=== PATIENT | female | born 1955 | race Caucasian/White ===

== ENCOUNTER → 2019-05-10 | Outpatient (CLI) | payer BC ==
--- NOTE | 2019-05-10 09:20 | Diagnostic Imaging Report ---
EXAM: Right upper quadrant abdominal ultrasound INDICATION: Elevated liver enzymes. COMPARISON: None. TECHNIQUE: Transverse and longitudinal images of the right upper quadrant abdomen were obtained FINDINGS: Liver: Size: 13.5 cm in the right midclavicular line, normal Appearance: Normal echogenicity, smooth contour Mass: No focal masses Gallbladder: No gallbladder distension, pericholecystic fluid, wall thickening, stone, or reported sonographic Pena's sign. Gallbladder wall measures 2 mm. Bile Ducts: Intrahepatic Ducts: No dilatation Extrahepatic Ducts: Common bile duct measures 4 mm, no dilatation Pancreas: Visualized portions of the pancreatic head, neck and proximal body are normal. Kidney: The right kidney measures 8.9 cm without evidence of hydronephrosis or stone. Vessels: Aorta: Visualized portions are normal Inferior Vena Cava: Visualized portions are normal Main Portal Vein: 1.0 cm, normal size with hepatopetal flow. Free Fluid: No ascites or pleural effusion IMPRESSION: Unremarkable right upper quadrant ultrasound. Signed by: Enrique Landaverde MD on 05/10/2019 9:16 AM
== END ==
LOC: US 07:44
PROVIDERS: ATTEND Internal Medicine Gastroenterology
DX: R74.8 Abnormal levels of other serum enzymes (principal)
CPT/HCPCS: 76705

== ENCOUNTER → 2019-07-03 | Day surgery (SDC) | payer BC ==
[~2019-07-03] MED LIST: AMLODIPINE BESYL5 MG PO; CYCLOBENZAPRINE10 MG PO; GABAPENTIN100 MG PO; HYDROCHLOROTHIA25 MG PO; LIDOCAINE HCL 2% LOCAL INJ 5 ML SDV VIAL INJ ONE; MIDAZOLAM HCL 2 MG/2 ML VIAL ONE; PROPOFOL IV EMULSION 10 MG/ML 50 ML VIAL ONE
[2019-07-03 08:30] VITALS: BP 115/73
--- OUTSIDE RECORDS SUMMARY | 2019-07-06 13:04 | XMS REPORT ---
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 Allergies, Adverse Reactions, Alerts Allergy Name Allergy Type Status Severity Reaction(s) Onset Date Inactive Date Treating Clinician Comments Penicillins DA Active U 2011-03-21 00:00:00 codeine DA Active U 2011-03-21 00:00:00 Medications This patient has no known medications. Encounters Start Date/Time End Date/Time Encounter Type Admission Type Attending Clinicians Care Facility Care Department Encounter ID 2018 00:00:00 2018 00:00:00 Outpatient [facility] [id number] 2018-03-22 00:00:00 2018-03-22 00:00:00 Outpatient [facility] [id number] 2018-03-07 00:00:00 2018-03-07 00:00:00 Outpatient [facility] [id number] 2018-03-01 09:30:10 2018-03-01 09:30:10 Outpatient [facility] [id number] 2018-03-01 08:41:30 2018-03-01 08:41:30 Outpatient [facility] [id number] 2018-03-01 07:48:38 2018-03-01 07:48:38 Outpatient [facility] [id number] Results Test Description Test Time Test Comments Text Results Atomic Results Result Comments US LIVER 2019-05-10 09:15:00 [place] [id number] Patient Name: KAMARI FISCHER MR #: [id number] : 1955 Age/Sex: 64/F Req #: [id number] Adm Physician: Ordered by: GALLITO RODARTE MD Report #: [id number] Location: Room/Bed: Procedure: [id number] US/US LIVER Exam Date: 05/10/19 Exam Time: 808 REPORT STATUS: Signed EXAM: Right upper quadrant abdominal ultrasound INDICATION: Elev ated liver enzymes. COMPARISON: None. TECHNIQUE: Transverse and longitudinal images of the right upper quadrant abdomen were obtained FINDINGS: Liver: Size: 13.5 cm in the right midclavicular line, normal Appearance: Normal echogenicity, smooth contour Mass: No focal masses Gallbladder: No gallbladder distension, pericholecystic fluid, wall thickening, stone, or reported sonographic Pena's sign. Gallbladder wall measures 2 mm. Bile Ducts: Intrahepatic Ducts: No dilatation Extrahepatic Ducts: Common bile duct measures 4 mm, no dilatation Pancreas: Visualized portions of the pancreatic head, neck and proximal body are normal. Kidney: The right kidney measures 8.9 cm without evidence of hydronephrosis or stone. Vessels: Aorta: Visualized portions are normal Inferior Vena Cava: Visualized portions are normal Main Portal Vein: 1.0 cm, normal size with hepatopetal flow. Free Fluid: No ascites or pleural effusion IMPRESS ION: Unremarkable right upper quadrant ultrasound. Signed by: Cirilo Limon MD on 05/10/2019 9:16 AM Dictated By: CIRILO LIMON MD 5 Transcribed By: HUANG on 05/10/19915 COPY TO: GALLITO RODARTE MD
--- OUTSIDE RECORDS SUMMARY | 2019-07-06 13:04 | XMS REPORT ---
Author Author Admin, [place] Organization [facility] Address [address] [place] [address] [place] [address] Phone Allergies, Adverse Reactions, Alerts Allergy Name Reaction Description Start Date Severity Status Provider PENICILLIN Severe Active [employer] CODEINE Severe Active [employer] Conditions or Problems Problem Name Problem Code Onset Date Status Entry Date Provider Comment Standard Description Annotate Family stress V61.9 Active Lois Oglesby DO Unspecified family circumstance Hyperlipidemia 272.4 Active Lois Oglesby DO Other and unspecified hyperlipidemia Abnormal radiologic findings on diagnostic imaging of right kidney Active Lois Oglesby DO US: elliptical hypoechoic lesion in the superior pole of right kidney Degenerative disc disease, 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 Lois Oglesby DO Degeneration of lumbar or lumbosacral intervertebral disc with facet osteoarthropathy on xray in 09/2018 Osteopenia 733.90 Active Lois Oglesby DO Disorder of bone and cartilage, unspecified per thoracic xray in 09/2018 Scoliosis 737.30 Active Lois Oglesby DO Scoliosis [and kyphoscoliosis], idiopathic mild thoracic spine per xray in 09/2018 Elevated alkaline phosphatase 790.5 Active Lois Oglesby DO Other nonspecific abnormal serum enzyme levels Elevated LFT's 794.8 Active Lois Oglesby DO Nonspecific abnormal results of function study of liver Encounter for immunization V05.9 Active Lois Oglesby DO Need for prophylactic vaccination and inoculation against unspecified single disease Gynecological examination, routine V72.3 Active Lois Mendel DO Special investigations and examinations - Gynecological examination Mammogram not high risk screening V76.12 Active Lois Mendel DO Other screening mammogram Hypertension 401.1 Active Lois Mendel DO Benign essential hypertension Lumbago 724.2 Active Lois Mendel DO Lumbago Overweight Active Lois Mendel DO Overweight Screening for anemia ICD-V78.1 Inactive Lois Mendel DO Screening for diabetes mellitus ICD-V77.1 Inactive Lois Mendel DO Screening for lipid disorder ICD-V77.91 Inactive Lois Mendel DO Screening for metabolic disorder ICD-V77.99 Inactive Lois Mendel DO Screening for thyroid disorder ICD-V77.0 Inactive Lois Mendel DO Screening, STD ICD-V74.5 Inactive Lois Mendel DO Screening for anemia V78.1 Resolved Lois Mendel DO Screening for other and unspecified deficiency anemia Screening for diabetes mellitus V77.1 Resolved Lois Mendel DO Screening for diabetes mellitus Screening for lipid disorder V77.91 Resolved Lois Mendel DO Screening for lipoid disorders Screening for metabolic disorder V77.99 Resolved Lois Mendel DO Screening for other and unspecified endocrine, nutritional, metabolic, and immunity disorders Screening for thyroid disorder V77.0 Resolved Lois Mendel DO Screening for thyroid disorders Screening, STD V74.5 Resolved Lois Mendel DO Screening examination for venereal disease Medication List Medication Instructions Start Date Stop Date Generic Name NDC Status Provider Patient Instruction CYCLOBENZAPR 10MG TAB Take onet tablet By Mouth take at bedtime NEEDED FOR MUSCLE SPASM CYCLOBENZAPRINE HCL 82577111709 Active Lois Turpinhney Active NAPROXEN 500MG TAB TAKE 1 TABLET BY MOUTH TWICE DAILY NEEDED FOR PAIN AND INFLAMMATION NAPROXEN 85258920016 Active Lois Mendel Active AMLODIPINE BESYLATE 5 MG ORAL TABLET 1 tab by mouth daily AMLODIPINE BESYLATE 39136411440 Active Lois Turpinhney Active HYDROCHLOROTHIAZIDE 12.5 MG ORAL CAPSULE 1 by mouth every day HYDROCHLOROTHIAZIDE 41242011245 Active Lois Turpinhney Active TRAMADOL HCL 50 MG ORAL TABLET 1-2 tablet By Mouth Twice a Day as needed for breakthrough pain over Naproxen treatment TRAMADOL HCL 49022045520 Active Lois Mendel Active Advance Directives Directive Description Start Date DISCUSSED - NO DECISION MADE Immunizations Vaccine Administration Date Value Standard Description Tetanus toxoid, reduced diphtheria toxoid and acellular Pertussis vaccine, absorbed (TdaP) given given tetanus toxoid, reduced diphtheria toxoid, and acellular pertussis vaccine, adsorbed influenza immunization (Flu Vax) has been administered given influenza virus vaccine, unspecified formulation Vital Signs Date Name Value Unit Range Description blood pressure, diastolic 80 mm[Hg] BP liu blood pressure, systolic 145 mm[Hg] BP sys height E&M 65 [in_us] Bdy height pulse rate E&M 59 /min Heart rate temperature E&M 98.2 [degF] Body temperature weight E&M 163 [lb_av] Weight Measured blood pressure, diastolic 84 mm[Hg] BP liu blood pressure, systolic 124 mm[Hg] BP sys height E&M 65 [in_us] Bdy height pulse rate E&M 99 /min Heart rate temperature E&M 98.0 [degF] Body temperature weight E&M 154.20 [lb_av] Weight Measured blood pressure, diastolic 97 mm[Hg] BP liu blood pressure, systolic 140 mm[Hg] BP sys height E&M 65 [in_us] Bdy height pulse rate E&M 97 /min Heart rate temperature E&M 98.1 [degF] Body temperature weight E&M 153 [lb_av] Weight Measured blood pressure, diastolic 95 mm[Hg] BP liu blood pressure, systolic 138 mm[Hg] BP sys height E&M 65 [in_us] Bdy height pulse rate E&M 94 /min Heart rate temperature E&M 98.1 [degF] Body temperature weight E&M 155.13 [lb_av] Weight Measured blood pressure, diastolic 85 mm[Hg] BP liu blood pressure, systolic 133 mm[Hg] BP sys pulse rate E&M 89 /min Heart rate blood pressure, diastolic 93 mm[Hg] BP liu blood pressure, systolic 136 mm[Hg] BP sys height E&M 65 [in_us] Bdy height pulse rate E&M 80 /min Heart rate temperature E&M 98 [degF] Body temperature weight E&M 153.80 [lb_av] Weight Measured Diagnostic Results Date Name Value Unit Range Description Lab Report: CBC With Differential/Platelet, Comp. Metabolic Panel (14), ... - Chemistry thyroid stimulating hormone, serum 2.560 u[iU]/mL 0.450-4.500 very low density lipoproteins 21 mg/dL 5-40 hepatitis B surface antigen Negative Negative Lab Report: Comp. Metabolic Panel (14) - Chemistry chloride, serum 99 mmol/L 96-106 urea nitrogen, blood 17 mg/dL 8-27 Office Visit: Annual / Family Planning Female - Urinalysis leukocyte esterase, urine, by dipstick negative Lab Report: CBC With Differential/Platelet, Comp. Metabolic Panel (14), ... - Hematology mean corpuscular hemoglobin concentration, RBC 32.9 G/DL % 31.5-35.7 erythrocyte (RBC) count 4.20 X10E6/UL 10*6/mm3 3.77-5.28 Office Visit: Annual / Family Planning Female - Urinalysis nitrite, urine, semiquantitative negative Lab Report: CBC With Differential/Platelet, Comp. Metabolic Panel (14), ... - Serology hepatitis C antibody, serum <0.1 0.0-0.9 Office Visit: Annual / Family Planning Female - Urinalysis urine color yellow Lab Report: CBC With Differential/Platelet, Comp. Metabolic Panel (14), ... - Chemistry Absolute Neutrophils 1.8 X10E3/UL 10*3/uL 1.4-7.0 Office Visit: Annual / Family Planning Female - Urinalysis bilirubin, urine negative Lab Report: CBC With Differential/Platelet, Comp. Metabolic Panel (14), ... - Chemistry LDL cholesterol, serum 171 mg/dL 0-99 Lab Report: Comp. Metabolic Panel (14) - Chemistry urea nitrogen/creatinine ratio, serum 17 12-28 Lab Report: CBC With Differential/Platelet, Comp. Metabolic Panel (14), ... - Hematology mean corpuscular volume, RBC 94 fL 79-97 Lab Report: CBC With Differential/Platelet, Comp. Metabolic Panel (14), ... - Chemistry HDL cholesterol, serum 64 mg/dL >39 Lab Report: CBC With Differential/Platelet, Comp. Metabolic Panel (14), ... - Hematology monocytes as percent of blood leukocytes 9 % Not Estab. Lab Report: Comp. Metabolic Panel (14) - Chemistry albumin/globulin ratio, serum 1.3 1.2-2.2 creatinine, serum 1.00 mg/dL 0.57-1.00 Lab Report: CBC With Differential/Platelet, Comp. Metabolic Panel (14), ... - Chemistry cholesterol, serum 256 mg/dL 100-199 Lab Report: Comp. Metabolic Panel (14) - Chemistry bilirubin, serum, total 0.4 mg/dL 0.0-1.2 Lab Report: CBC With Differential/Platelet, Comp. Metabolic Panel (14), ... - Hematology Eosinophil Absolute Count 0.1 X10E3/UL 10*3/uL 0.0-0.4 Office Visit: Annual / Family Planning Female - Urinalysis blood in urine (hemoglobin) by dipstick negative appearance, urine clear Lab Report: Comp. Metabolic Panel (14) - Chemistry aspartate aminotransferase (SGOT), serum 49 U/L 0-40 Lab Report: CBC With Differential/Platelet, Comp. Metabolic Panel (14), ... - Hematology red blood cell distribution width 13.9 % 12.3-15.4 leukocyte count, blood 4.3 X10E3/UL 10*3/mm3 3.4-10.8 Office Visit: Annual / Family Planning Female - Urinalysis pH, urine, semiquantitative 5.5 Lab Report: Comp. Metabolic Panel (14) - Chemistry potassium, serum 5.0 mmol/L 3.5-5.2 albumin, serum 4.6 g/dL 3.6-4.8 Lab Report: CBC With Differential/Platelet, Comp. Metabolic Panel (14), ... - Chemistry immature granulocytes, percentage of total cells, blood 0 % Not Estab. Lab Report: CBC With Differential/Platelet, Comp. Metabolic Panel (14), ... - Hematology lymphocyte count, blood, automated 2.0 X10E3/UL 10*3/mm3 0.7-3.1 hematocrit, blood 39.5 % 34.0-46.6 Lab Report: Comp. Metabolic Panel (14) - Chemistry sodium, serum 139 mmol/L 134-144 Lab Report: CBC With Differential/Platelet, Comp. Metabolic Panel (14), ... - Hematology neutrophils as percent of blood leukocytes 41 % Not Estab. basophils as percent of blood leukocytes 1 % Not Estab. Office Visit: Annual / Family Planning Female - Urinalysis protein, urine, semiquantitative (dipstick) negative Lab Report: CBC With Differential/Platelet, Comp. Metabolic Panel (14), ... - Serology rapid plasma reagin antibody, serum Non Reactive Non Reactive Lab Report: Comp. Metabolic Panel (14) - Chemistry carbon dioxide, venous blood 22 mmol/L 20-29 Lab Report: CBC With Differential/Platelet, Comp. Metabolic Panel (14), ... - Chemistry triglyceride, serum, fasting 106 mg/dL 0-149 Lab Report: Comp. Metabolic Panel (14) - Chemistry calcium, serum 10.7 mg/dL 8.7-10.3 alanine aminotransferase (SGPT), serum 41 U/L 0-32 Lab Report: CBC With Differential/Platelet, Comp. Metabolic Panel (14), ... - Hematology mean corpuscular hemoglobin, RBC 31.0 pg 26.6-33.0 Office Visit: Annual / Family Planning Female - Urinalysis specific gravity, urine 1.005 Lab Report: Comp. Metabolic Panel (14) - Chemistry protein, total, serum 8.1 g/dL 6.0-8.5 alkaline phosphatase, serum 453 U/L 39-117 Lab Report: CBC With Differential/Platelet, Comp. Metabolic Panel (14), ... - Hematology hemoglobin, blood 13.0 g/dL 11.1-15.9 lymphocytes as percent of blood leukocytes 46 % Not Estab. Lab Report: CBC With Differential/Platelet, Comp. Metabolic Panel (14), ... - Chemistry hemoglobin A1C, blood, as % of total hemoglobin 5.4 % 4.8-5.6 Office Visit: Annual / Family Planning Female - Urinalysis glucose, urine, semiquantitative negative Lab Report: Comp. Metabolic Panel (14) - Genetics/fertility eGFR if 70 mL/min/1.73m2 >59 Lab Report: CBC With Differential/Platelet, Comp. Metabolic Panel (14), ... - Hematology basophil count, absolute 0.0 x10E3/uL 0.0-0.2 Lab Report: Comp. Metabolic Panel (14) - Chemistry globulin, serum 3.5 1.5-4.5 Estimated Glomerular Filtration Rate (calc) 61 mL/min/1.73m2 >59 Lab Report: CBC With Differential/Platelet, Comp. Metabolic Panel (14), ... - Serology hepatitis B surface antibody Non Reactive Lab Report: CBC With Differential/Platelet, Comp. Metabolic Panel (14), ... - Hematology eosinophils as percent of blood leukocytes 3 % Not Estab. Lab Report: Comp. Metabolic Panel (14) - Chemistry blood glucose, random 105 mg/dL 65-99 Office Visit: Annual / Family Planning Female - Urinalysis urobilinogen, urine, semiquantitative (dipstick) negative Lab Report: CBC With Differential/Platelet, Comp. Metabolic Panel (14), ... - Hematology monocyte count, blood, automated 0.4 X10E3/UL 10*3/uL 0.1-0.9 platelet count 284 X10E3/UL 10*3/mm3 150-379 Office Visit: Annual / Family Planning Female - Urinalysis ketones, urine, by test strip negative Encounters Date Encounter Provider Code Facility 09:18:33 CDT Est Patient Exp Problem - 76659 Lois Mendel DO CPT-63872 [facility] 15:27:23 CDT Est Patient Detailed - 52112 Lois Mendel DO CPT-80102 [facility] 13:39:30 NURSES' REGISTRY DIRECTOR Est Patient Exp Problem - 29992 Lois Mendel DO CPT-32917 [facility] 12:14:47 CDT New Patient Exp Problem - 75954 Lois Mendel DO CPT-34008 [facility] Procedures Code Procedure Name Date Entry Date Standard Description CPT-18369 TDAP 14:52:06 NURSES' REGISTRY DIRECTOR CPT-61730 Est Patient Well Exam (40 - 64 Yrs) - [id number] 14:51:55 NURSES' REGISTRY DIRECTOR
== END | disposition home or self-care (01) ==
LOC: OR 05:33
PROVIDERS: ATTEND Internal Medicine Gastroenterology
DX: K29.50 Unspecified chronic gastritis without bleeding (principal); D12.4 Benign neoplasm of descending colon; K29.70 Gastritis, unspecified, without bleeding; K31.89 Other diseases of stomach and duodenum; K57.30 Diverticulosis of large intestine without perforation or abscess without bleeding; K44.9 Diaphragmatic hernia without obstruction or gangrene; K64.8 Other hemorrhoids; B96.81 Helicobacter pylori [H. pylori] as the cause of diseases classified elsewhere; K76.0 Fatty (change of) liver, not elsewhere classified; I10 Essential (primary) hypertension; M81.0 Age-related osteoporosis without current pathological fracture; R74.8 Abnormal levels of other serum enzymes; R00.2 Palpitations; Z88.6 Allergy status to analgesic agent; Z88.0 Allergy status to penicillin
CPT/HCPCS: 43239; 45380; 45385; J2001; J2250; J2704; 45378

== ENCOUNTER → 2019-09-03 | Outpatient (CLI) | payer BC ==
[~2019-09-03] MED LIST changes: +FENTANYL CITRATE/PF 100MCG/2 ML INJ ONE; -LIDOCAINE HCL 2% LOCAL INJ 5 ML SDV VIAL INJ ONE; -PROPOFOL IV EMULSION 10 MG/ML 50 ML VIAL ONE
[2019-09-03 08:11] LABS: HEMOGLOBIN 13.1 g/dL (12.0-16.0)
[2019-09-03 08:20] LABS: INR 0.76; PROTHROMBIN TIME 11.1 seconds (11.9-14.5)
[2019-09-03 08:21] LABS: PARTIAL THROMBOPLASTIN TIME 28.6 seconds (23.8-35.5)
--- NOTE | 2019-09-03 10:23 | Diagnostic Imaging Report ---
PROCEDURE: Ultrasound-guided biopsy Procedural Personnel Attending physician(s): Enrique Landaverde MD Fellow physician(s): None Resident physician(s): None Advanced practice provider(s): None Pre-procedure diagnosis: Elevated liver enzymes Post-procedure diagnosis: Same Indication: Organ dysfunction Previous biopsy of same target (QCDR): No Additional clinical history: None Complications: No immediate complications. IMPRESSION: Ultrasound-guided biopsy of right liver. Plan: Specimen(s) sent for evaluation. PROCEDURE SUMMARY: - Percutaneous US-guided nonfocal right liver biopsy - Additional procedure(s): None PROCEDURE DETAILS: Pre-procedure Reference imaging for biopsy target: Liver ultrasound 05/10/2019 Consent: Informed consent for the procedure including risks, benefits and alternatives was obtained and time-out was performed prior to the procedure. Preparation: The site was prepared and draped using maximal sterile barrier technique including cutaneous antisepsis. Anesthesia/sedation Level of anesthesia/sedation: Moderate sedation (conscious sedation) Anesthesia/sedation administered by: Independent trained observer under attending supervision with continuous monitoring of the patient?s level of consciousness and physiologic status Total intra-service sedation time (minutes): 30 Imaging prior to biopsy The patient was positioned supine. Initial ultrasound was performed. Biopsy target: - Maximal diameter (cm): N/A - Location: Right liver nonfocal Other findings: None Biopsy Local anesthesia was administered. Under US guidance, the biopsy needle was advanced to the target and biopsy was performed. Coaxial needle: 17 gauge Core needle biopsy device: [employer] Core needle size: 18 gauge Number of core specimens: 3 On-site biopsy touch preparation: No Additional sampling recommendations: None Preliminary assessment of sample adequacy: Not applicable Needle removal The biopsy needle was removed and a sterile dressing was applied. Tract embolization: None Imaging following biopsy Immediate post-biopsy ultrasound was performed. Post-biopsy imaging findings: No hematoma Additional Details Additional description of procedure: None Equipment details: None Specimens removed: Biopsy samples as detailed above Estimated blood loss (mL): Less than 10 Standardized report: [id number] Attestation Signer name: Enrique Landaverde MD I attest that I was present for the entire procedure. I reviewed the stored images and agree with the report as written. Signed by: Enrique Landaverde MD on 09/03/2019 10:21 AM
== END ==
LOC: US 07:33
PROVIDERS: ATTEND Internal Medicine Gastroenterology
DX: R74.8 Abnormal levels of other serum enzymes (principal)
CPT/HCPCS: 36415; 47000; 76942; 85014; 85049; 85610; 85730; 88307; J2250; J3010; 99152